=== PATIENT | female | born 1965 | race Caucasian/White ===

== ENCOUNTER 2017-05-25 23:07 | Emergency (ER) | payer BC, OTHER ==
[~2017-05-25] VITALS: Ht 152.4 cm; Wt 63.9 kg
[~2017-05-25 23:07] MED LIST: MULT-65 PO; SUMA50TA2 PO; ZOFR4TAB3 SL; bioidentical hormone PO
[2017-05-25 23:31] VITALS: BP 208/98; PULSE 68; RESP 18; TEMP 98.7; O2SAT 99
[2017-05-26] MEDS ORDERED: KETOROLAC TROMETHAMINE 30 MG/ML (IVP) VIAL IV PUSH ONE
[2017-05-26] MEDS ORDERED: diphenhydrAMINE HCL 50 MG/ML VIAL IV PUSH ONE
[2017-05-26] MEDS ORDERED: SODIUM CHLOR 0.9% 1000 ML INJ 1,000 ML IV ONE
[2017-05-26] MEDS ORDERED: ZOFR4TAB3 SL (00:12)
[2017-05-26] MEDS ORDERED: BUTA1CAP PO (00:12)
--- NOTE | 2017-05-26 00:12 | PD ---
HPI Chief Complaint: Headache Time Seen by Provider: 23:55 Travel History International Travel<30 days: No Contact w/Intl Traveler<30days: No Traveled to known affect area: No History of Present Illness HPI 51-year-old female complains of headache, upper back pain and nausea vomiting. Patient states the symptoms started yesterday and got worse today. Patient has history of migraine headache. Patient was seen by personal physician and had been taking sumatriptan 10 the headache. Patient states that sumatriptan is not relieving headache this time. Patient states that she started having aching pain to the upper back yesterday and started headache subsequently and nausea vomiting. Patient denies any fever chills. Patient denies any visual change. Patient denies any stiff neck. Patient denies any chest pain or shortness of breath. Patient denies abdominal pain. Patient denies any focal weakness or numbness of extremity. Patient states the headache is throbbing headache mostly on the right side the head. Patient states that headache is typical migraine headache. Patient also complained of photophobia with headache. PFSH Past Medical History Migraines: Yes Menopausal: Yes Past Surgical History Cholecystectomy: Yes (2002) Gynecologic Surgery: Yes (ABLATION 2004) Social History Alcohol Use: No Tobacco Use: No Substance Use: No Allergies-Medications (Allergen,Severity, Reaction): Coded Allergies: No Known Allergies (Verified , 05/26/17) Reported Meds & Prescriptions Reported Meds & Active Scripts Active Zofran Odt (Ondansetron Odt) 4 Mg Tab 4 Mg SL Q6HR PRN Reported Sumatriptan (Sumatriptan Succinate) 50 Mg Tab 50 Mg PO ONCE PRN If a satisfactory response has not been obtained at 2 hours, a second dose may be administered Ativan (Lorazepam) 0.5 Mg Tab 0.5 Mg PO HS PRN Estrace (Estradiol) 0.5 Mg Tab 0.5 Mg PO DAILY Medroxyprogesterone Acetate 5 Mg Tab 1.25 Mg PO DAILY Start day 21 [bioidentical hormone] Unknown Dose PO DAILY Review of Systems General / Constitutional: No: Fever Eyes: No: Visual changes HENT: Positive: Headaches Cardiovascular: No: Chest Pain or Discomfort Respiratory: No: Shortness of Breath Gastrointestinal: Positive: Nausea, Vomiting, No: Abdominal Pain Genitourinary: No: Dysuria Musculoskeletal: No: Pain Skin: No Rash Neurologic: No: Weakness Psychiatric: No: Depression Endocrine: No: Polydipsia Hematologic/Lymphatic: No: Easy Bruising Physical Exam Narrative GENERAL: Well-nourished, well-developed patient. SKIN: Focused skin assessment warm/dry. HEAD: Normocephalic. EYES: No scleral icterus. No injection or drainage. Pupils 3 mm equal reactive. NECK: Supple, trachea midline. No JVD or lymphadenopathy. No meningismus CARDIOVASCULAR: Regular rate and rhythm without murmurs, gallops, or rubs. RESPIRATORY: Breath sounds equal bilaterally. No accessory muscle use. GASTROINTESTINAL: Abdomen soft, non-tender, nondistended. MUSCULOSKELETAL: No cyanosis, or edema. BACK: Nontender without obvious deformity. No CVA tenderness. Neurologic exam: Patient awake and alert oriented 3. No obvious focal neurological deficit. Data Data Last Documented VS Vital Signs Date Time Temp Pulse Resp B/P (MAP) Pulse Ox O2 Delivery O2 Flow Rate FiO2 05/26/17 01:03 20 05/26/17 00:53 98.3 65 169/99 (122) 97 Orders Orders Sodium Chlor 0.9% 1000 Ml Inj (Ns 1000 M (05/26/17 00:00) Ketorolac Inj (Toradol Inj) (05/26/17 00:00) Diphenhydramine Inj (Benadryl Inj) (05/26/17 00:00) Ondansetron Inj (Zofran Inj) (05/26/17 00:00) Complete Blood Count With Diff (05/26/17 00:04) Basic Metabolic Panel (Bmp) (05/26/17 00:04) Iv Access Insert/Monitor (05/26/17 00:04) Ecg Monitoring (05/26/17 00:04) Oximetry (05/26/17 00:04) Labs Laboratory Tests Test 05/26/17 00:30 White Blood Count 10.1 TH/MM3 Red Blood Count 5.56 MIL/MM3 Hemoglobin 16.3 GM/DL Hematocrit 51.0 % Mean Corpuscular Volume 91.6 FL Mean Corpuscular Hemoglobin 29.3 PG Mean Corpuscular Hemoglobin Concent 32.0 % Red Cell Distribution Width 12.1 % Platelet Count 213 TH/MM3 Mean Platelet Volume 7.8 FL Neutrophils (%) (Auto) 68.5 % Lymphocytes (%) (Auto) 24.4 % Monocytes (%) (Auto) 4.7 % Eosinophils (%) (Auto) 1.2 % Basophils (%) (Auto) 1.2 % Neutrophils # (Auto) 6.9 TH/MM3 Lymphocytes # (Auto) 2.5 TH/MM3 Monocytes # (Auto) 0.5 TH/MM3 Eosinophils # (Auto) 0.1 TH/MM3 Basophils # (Auto) 0.1 TH/MM3 CBC Comment DIFF FINAL Differential Comment Blood Urea Nitrogen 17 MG/DL Creatinine 0.84 MG/DL Random Glucose 165 MG/DL Calcium Level 8.8 MG/DL Sodium Level 140 MEQ/L Potassium Level 3.5 MEQ/L Chloride Level 106 MEQ/L Carbon Dioxide Level 24.8 MEQ/L Anion Gap 9 MEQ/L Estimat Glomerular Filtration Rate 71 ML/MIN [facility] Medical Decision Making Medical Screen Exam Complete: Yes Emergency Medical Condition: Yes Differential Diagnosis Differential diagnosis including migraine headache, tension headache, cluster headache, gastroenteritis, dehydration, electrolyte imbalance. Narrative Course 51-year-old female with headache, upper back pain, nausea vomiting. History of migraine headache. Normal saline solution 1 L IV bolus. Toradol 30 mg IV. Benadryl 25 mg IV. Zofran 4 mg IV. Diagnosis Primary Impression: Migraine headache Qualified Codes: G43.909 - Migraine, unspecified, not intractable, without status migrainosus Additional Impression: Gastroenteritis Patient Instructions: General Instructions Additional Instructions: Fioricet and Zofran as needed. Follow-up with personal physician. Return if worse. Med/Other Pt SpecificInfo: Prescription(s) given Scripts Ondansetron Odt (Zofran Odt) 4 Mg Tab 4 MG SL Q6HR Y for Nausea/Vomiting, #10 TAB 0 Refills Prov: Curt Aldana MD 05/26/17 Disposition: 01 DISCHARGE HOME Condition: Stable Curt Aldana MD May 26, 2017 00:12
[2017-05-26 00:49] LABS: AUTOMATED NEUTROPHIL # 6.9 TH/MM3 (1.8-7.7); BASOPHIL # 0.1 TH/MM3 (0-0.2); BASOPHIL % 1.2 % (0.0-2.0); EOSINOPHIL # 0.1 TH/MM3 (0-0.4); EOSINOPHIL % 1.2 % (0.0-4.0); HEMO FLAGS DIFF FINAL; LYMPH % 24.4 % (9.0-44.0); LYMPHOCYTE # 2.5 TH/MM3 (1.0-4.8); MEAN CELL VOLUME 91.6 FL (80.0-100.0); MEAN CORPUSCULAR HEMOGLOBIN 29.3 PG (27.0-34.0); MONO % 4.7 % (0.0-8.0); NEUT % 68.5 % (16.0-70.0); PLATELET COUNT 213 TH/MM3 (150-450); RED BLOOD COUNT 5.56 MIL/MM3 (4.00-5.30); RED CELL DISTRIBUTION WIDTH 12.1 % (11.6-17.2); WHITE BLOOD COUNT 10.1 TH/MM3 (4.0-11.0)
[2017-05-26 00:53] VITALS: BP 169/99; PULSE 65; RESP 20; TEMP 98.3; O2SAT 97
[2017-05-26] MEDS ORDERED: SUMA50TA2 PO (01:02)
[2017-05-26] MEDS ORDERED: LORA-392 PO (01:02)
[2017-05-26] MEDS ORDERED: ESTR0.5T3 PO (01:02)
[2017-05-26] MEDS ORDERED: MEDR5TAB3 PO (01:02)
[2017-05-26 01:15] LABS: POTASSIUM 3.5 MEQ/L (3.5-5.1)
[2017-05-26 01:18] LABS: BICARBONATE 24.8 MEQ/L (21.0-32.0)
[2017-05-26] MEDS ORDERED: MORPHINE SULFATE 4 MG/ML INJ IV PUSH ONE (01:30)
[2017-05-26] MEDS ORDERED: ONDANSETRON HCL 4 MG/2 ML VIAL IV PUSH ONE ×2 (01:30)
[2017-05-26 01:36] VITALS: RESP 20
[2017-05-26 02:36] VITALS: BP 139/76
== END 2017-05-26 02:40 | disposition home or self-care (01) ==
LOC: PHED 23:07
DX: G43.909 Migraine, unspecified, not intractable, without status migrainosus (principal); K52.9 Noninfective gastroenteritis and colitis, unspecified
CPT/HCPCS: 80048; 85025; 96361; 96374; 96375; 96376; 99284; J1200; J1885; J2270; J2405; J7030